=== PATIENT | male | born 1945 | race Caucasian/White ===

== ENCOUNTER → 2021-12-07 | Outpatient (CLI) | payer MEDICARE | LOC: KOH-I 10:36 | DX: M47.812 Spondylosis without myelopathy or radiculopathy, cervical region (principal); M54.6 Pain in thoracic spine; M54.50 Low back pain, unspecified; M47.816 Spondylosis without myelopathy or radiculopathy, lumbar region; M47.814 Spondylosis without myelopathy or radiculopathy, thoracic region; I65.29 Occlusion and stenosis of unspecified carotid artery | CPT/HCPCS: 72040; 72070; 72100 ==

== ENCOUNTER → 2022-03-02 | Outpatient (CLI) | payer MEDICARE | LOC: KOH-I 08:11 | DX: L03.119 Cellulitis of unspecified part of limb (principal); I70.201 Unspecified atherosclerosis of native arteries of extremities, right leg | CPT/HCPCS: 93925; 93970 ==